=== PATIENT | female | born 1985 | race Hispanic/Latino ===

== ENCOUNTER 2019-11-09 01:50 | Inpatient (IN) | payer SELFPAY ==
[2019-11-09] VITALS (11 sets, daily range): BP systolic 94–109; BP diastolic 66–86; PULSE 77–131; RESP 16–34; TEMP 36.8–36.9; O2SAT 92–98
--- NOTE | ~2019-11-09 | CT_ITS ---
EXAMINATION: CTA chest PE protocol EXAM DATE: 11/09/2019 16:17 INDICATION: Elevated d-dimer. Shortness of breath. TECHNIQUE: Spiral CTA of the chest (pulmonary arteries) was performed with 100 cc Omnipaque 350 intr avenous contrast injection. Images were acquired during the pulmonary arterial phase. Coronal maxi mum intensity projection 3D-reconstructions were created by the technologist on dedicated workstation . Axial, coronal and sagittal reformatted images were reviewed. The dose-length product (DLP) for t his examination was 332.80 mGy-cm. The exposure was tailored according to patient size (auto mA exp osure control), and iterative reconstruction (ASIR) was used as additional dose reduction technique. There is no prior study for comparison. FINDINGS: There are no pulmonary emboli in the 1st through 3rd order (central and interlobar) pulmon kevin arteries. There is loss of attenuation in the segmental pulmonary arteries due to respiratory mot ion, but no intraluminal filling defects suspected. No thoracic aortic dissection. The lungs are c lear. There are no pleural or pericardial effusions. Tracheobronchial tree is patent. There is no mediastinal, hilar or axillary lymphadenopathy. There is no pneumothorax. Heart normal in size . No evidence of coronary arterial calcification. Upper abdomen is unremarkable. There is thorac ic spondylosis without osteoblastic or osteolytic lesions identified. IMPRESSION: 1. No central pulmonary emboli. Segmental vessels not confidently assessed. 2. Unremarkable CT pulmonary exam. Reviewed, dictated and finalized at location A.
--- NOTE | ~2019-11-09 | XR_ITS ---
EXAMINATION: XR chest 1V portable INDICATION: Shortness of breath TECHNIQUE: Portable AP chest at 0 to 46 hours COMPARISON: 04/12/2019 FINDINGS: There are minimal airspace opacities of the right lung base. No pleural effusion or pneumot horax is identified. The cardiomediastinal silhouette is normal. Surgical clips in the right upper qu adrant are likely from prior cholecystectomy. IMPRESSION: 1. Minimal right basilar airspace opacity, consistent with atelectasis versus pneumonia. Reviewed, dictated and finalized at location A. IMPRESSION: 1. Minimal right basilar airspace opacity, consistent with atelectasis versus p neumonia.
--- NOTE | 2019-11-09 01:53 | ED.SOB ---
HPI - SOB/Dyspnea General Chief Complaint: Shortness of Breath/Dyspnea Stated Complaint: sob x 2 wks Time Seen by Provider: 11/09/19 01:52 History of Present Illness HPI Narrative: Worsening SOB for the past 2 weeks. Associated with wheezing. Initially improved with albuterol, now this is no longer working. Similar episode in April, diagnosed with pneumonia at that time. No fever. No known sick contacts. Related Data Allergies Allergy/AdvReac Type Severity Reaction Status Date / Time No Known Allergies Allergy Verified 04/12/19 19:00 Review of Systems Review of Systems: All systems reviewed & are unremarkable except as noted in HPI and below Constitutional: Constitutional: Denies fever(s) ENT: Denies sore throat Cardiovascular: Cardiovascular: Denies chest pain Respiratory: Respiratory: Reports cough, Reports dyspnea and Reports wheezing Gastrointestinal: Gastrointestinal: Denies nausea and Denies vomiting Genitourinary: Genitourinary: Denies hematuria Neurologic: Denies dizziness PMFSH Past Medical History Medical History Pneumonia Surgical History Surgical History Previous section Social History Social History Smoking status: Never smoker Gender identity (if verbalized by the patient): Female Exam Const: General: no acute distress, alert and ill appearing Orientation/consciousness: patient oriented x3 Other: Mild distress HENMT: Head: normal to inspection Neck: Neck: normal visual inspection and no lymphadenopathy Chest: Chest palpation & inspection: no tenderness Resp: Effort & Inspection: labored and tachypneic Auscultation: wheezes Cardio: Jugular venous distension: no JVD Rate: tachycardic Rhythm: regular rhythm Heart sounds: no murmurs GI: Inspection: non-distended GI Palp: Yes Soft to palpation and No Tenderness to palpation present (GI) Skin: General skin exam: normal color Neuro: General: patient oriented x3 and moves all extremities Speech: normal speech Extrem: General: no edema Psych: Appearance: well kempt Affect: normal affect Course Vital Signs Vital signs: Vital Signs Temperature 36.9 C 11/09/19 02:02 Pulse Rate 131 H 11/09/19 02:02 Respiratory Rate 34 H 11/09/19 02:02 Blood Pressure 108/86 11/09/19 02:02 Pulse Oximetry 94 11/09/19 02:02 Temperature 36.9 C 11/09/19 02:02 Pulse Rate 86 11/09/19 03:20 Respiratory Rate 16 11/09/19 03:20 Blood Pressure 106/83 11/09/19 03:20 Pulse Oximetry 98 11/09/19 03:20 MDM - SOB/Dyspnea MDM Narrative Medical decision making narrative: Patchy infiltrate Differential Diagnosis Differential diagnosis: Likely community acquired pneumonia, asthma with exacerbation and other (COVID-19) Medical Records Attestation: I reviewed the patient's medical records. Lab Data Attestation: I reviewed the patient's lab results. Result diagrams: 11/09/19 02:07 Labs: Lab Results 11/09/19 11/09/19 11/09/19 Range/Units 02:07 02:07 02:07 WBC 22.5 H (4.5-10.0) K/mm3 RBC 5.23 (4.2-5.4) M/mm3 Hgb 14.4 (12.0-15.0) g/dL Hct 43.3 (37.0-47.0) % MCV 82.8 (80-100) fl MCH 27.5 (26-34) pg MCHC 33.3 (32-36) g/dl RDW 13.1 (11.5-14.5) % Plt Count 325 (150-375) k/mm3 MPV 10.3 (7.4-10.4) fl Immature Gran % (Auto) 0.6 H (0-0.5) % Neut % (Auto) 43.0 L (45.5-73.1) % Lymph % (Auto) 24.1 (18.3-44.2) % [place] % (Auto) 5.0 (2.6-8.5) % Eos % (Auto) 26.4 H (0-4.4) % Baso % (Auto) 0.9 (0.2-1.2) % Lymph # (Auto) 5.41 H (0.9-3.2) K/mm3 [place] # (Auto) 1.1 H (0.1-0.6) K/mm3 Eos # (Auto) 5.9 H (0-0.3) K/mm3 Baso # (Auto) 0.2 H (0.0-0.1) K/mm3 Abs Immat Gran (auto) 0.13 H (0.00-0.031) K/mm3 Absolute Neuts (auto) 9.7 H (1.
--- NOTE | 2019-11-09 01:58 | ECG_ITS ---
Measurements Intervals [place] Rate: 101 P: 33 [place]: 142 QRS: 77 QRSD: 84 T: 26 QT: 325 QTc: 423 Interpretive Statements SINUS TACHYCARDIA MINIMAL Q WAVES- INFERIOR LEADS NONSPECIFIC T-WAVE ABNORMALITY- INFERIOR LEADS BASELINE WANDER- V1 BORDERLINE ECG Electronically Signed On 11-13-2019 8:40:07 CDT by Bruno Whelan D.O.
[2019-11-09] MEDS: MAGNESIUM SULF 2 GM/WATER 50ML 2 GM/50 ML BAG IVPB (02:10)
[2019-11-09] MEDS: ALBUTEROL SULFATE NEB 2.5 MG/0.5 ML INH 5 MG INHALATION (02:19)
[2019-11-09] MEDS: IPRATROPIUM BR 0.02% INH SOLN 0.5 MG/2.5 ML VIAL INHALATION ×2 (02:19→20:12)
[2019-11-09 02:20] LABS: Basophils Absolute Auto 0.2 K/mm3 (0.0-0.1); Basophils Percent Auto 0.9 % (0.2-1.2); Eosinophils Absolute Auto 5.9 K/mm3 (0-0.3); Eosinophils Percent Auto 26.4 % (0-4.4); Hematocrit 43.3 % (37.0-47.0); Hemoglobin 14.4 g/dL (12.0-15.0); Immature Granulocyte Absolute 0.13 K/mm3 (0.00-0.031); Immature Granulocyte Percent A 0.6 % (0-0.5); Lymphocytes Absolute Auto 5.41 K/mm3 (0.9-3.2); Lymphocytes Percent Auto 24.1 % (18.3-44.2); Mean Corpuscular HGB Conc 33.3 g/dl (32-36); Mean Corpuscular Hemoglobin 27.5 pg (26-34); Mean Corpuscular Volume 82.8 fl (80-100); Mean Platelet Volume 10.3 fl (7.4-10.4); Monocytes Absolute Auto 1.1 K/mm3 (0.1-0.6); Neutrophils Absolute Auto 9.7 K/mm3 (1.3-6.7); Platelet Count Result 325 k/mm3 (150-375); Red Blood Count 5.23 M/mm3 (4.2-5.4); Red Cell Distribution Width 13.1 % (11.5-14.5); White Blood Count 22.5 K/mm3 (4.5-10.0)
[2019-11-09 02:33] LABS: Lactate Dehydrogenase 485 U/L (313-618)
[2019-11-09 02:34] LABS: D Dimer 0.77 ug/mL (<0.48); Lactic Acid Reflex 1.5 mmol/L (0.7-2.1)
[2019-11-09 02:37] LABS: CRP 1.2 mg/dL (<1.0)
--- NOTE | 2019-11-09 05:00 | ADMGEN ---
This patient, Gissel Regan, was admitted to [facility] Room 329-01. Patient/family oriented to hospital policies and general routines including ID bracelet, bed and alarms, visiting hours, pain management, procedures, bathroom and other care routines, personal items, smoking policy, room service/diet, and visiting hours. Valuables list has been completed. Information on how to activate the Rapid Response Team has been discussed. Patient/Family are encouraged to report perceived risks to care and to ask questions if they do not understand what they are told or what they should do.
[2019-11-09] MEDS: ALBUTEROL SULFATE (*SP) INHALER 1 PUFF (08:46)
[2019-11-09] MEDS: ALBUTEROL SULFATE (*SP) AEROSOL 1 PUFF 2 PUFF INHALATION ×3 (08:47→16:24)
--- NOTE | 2019-11-09 10:30 | PM.IMHP ---
H&P: HPI History of Present Illness Date/Time: 11/09/19 10:30 Chief complaint: Pneumonia Narrative: Gissel Regan is a 34 year old female with hx of PNA here for SOB and cough. Patient is Romansh speaking only. Majority history obtained through an certified court interpreter. Patient states about 2 weeks ago she developed cough with shortness of breath. Her symptoms have progressed to the point where the cough causes nausea and vomiting yesterday. She also was developing chest tightness. No fever or chills. No sick contacts. No COVID exposure. No recent travel. No local or overseas travel. No history of asthma. She is a lifelong nonsmoker. She grew up in [place] and states her vaccines are up-to-date. She believes that she has been vaccinated for pertussis. She denies any diarrhea or constipation. No abdominal pain. No dysuria or hematuria. Her menses are regular. Cough is productive clear sputum. No rash or open skin no lesions. No headaches. No mouth sores. No ear pain. No vision problems. Because of her worsening symptoms, she presented to the emergency room for evaluation. In the emergency room, she was hemodynamically stable but RR 34 and tachycardic at 131. CXR showing right basilar airspace disease. [place] [address] with a predominance of eosinophils. D-dimer was positive. CRP was 1.2. Lactic acid levels normal. She was started on IV antibiotics, dexamethasone and albuterol. COVID testing is pending. She feels better today. Review of Systems Review of Systems: All systems reviewed & are unremarkable except as noted in HPI and below PMFSH Past Medical History Medical History (Updated 11/10/19 @ 07:15 by Erik Carreon MD) Pneumonia LLL in March 2019 Surgical History Surgical History (Updated 11/09/19 @ 10:58 by Erik Carreon MD) Hx laparoscopic cholecystectomy June 2013 Previous section Family History Family History (Updated 11/09/19 @ 11:00 by Erik Carreon MD) Mother No problems noted. Father Hyperlipidemia Social History Social History (Updated 11/09/19 @ 11:01 by Erik Carreon MD) Social History: She lives at home with her , 2 children and [id number]. Lifelong nonsmoker. No alcohol or drug use. She is a full code. She nominates her to be the individual who would make medical decisions for her if she is not able. Smoking status: Never smoker Alcohol intake: never Substance use: never Gender identity (if verbalized by the patient): Female Spiritual care concerns: No Meds Home Medications and Allergies Home Medications Medication Instructions Recorded Confirmed Type No Home Medications 11/09/19 11/09/19 History Allergies Allergy/AdvReac Type Severity Reaction Status Date / Time No Known Allergies Allergy Verified 11/09/19 05:17 Vital Signs Vital Signs - 24 hr 11/09/19 02:02 11/09/19 02:10 11/09/19 02:15 Temperature 98.5 F Pulse Rate 131 H 101 H 99 Respiratory Rate 34 H 24 H 22 H Blood Pressure 108/86 96/74 L Pulse Oximetry 94 94 11/09/19 02:21 11/09/19 03:20 11/09/19 04:21 Temperature Pulse Rate 91 86 85 Respiratory Rate 21 H 16 20 Blood Pressure 106/83 108/75 Pulse Oximetry 98 92 11/09/19 08:00 Temperature 98.4 F Pulse Rate 90 Respiratory Rate 20 Blood Pressure 102/67 Pulse Oximetry 96 Exam Narrative: Exam Narrative: AF 102/67 95 20 96% 2L Gen - well-nourished, well-developed female in no acute respiratory distress who is nontoxic-appearing lying semi recumbent in bed HEENT - normocephalic. Atraumatic. Pupils equal round and reactive. Extraocular motions intact. Sclera clear and anicteric. Nares patent. Oropharynx was clear. No oral lesions. Moist mucous membranes. Tongue was midline. Palate xochitl symmetrically. No facial asymmetry. Neck - neck was supple. No dominant adenopathy, thyromegaly or masses. Chest - Right greater than left
[2019-11-09 14:05] LABS: SARS-CoV-2 RNA PCR Negative
[2019-11-09 14:20] LABS: Anion Gap 16.3 mmol/L (7-16); Blood Urea Nitrogen 9 mg/dL (7-17); Calcium 9.5 mg/dL (8.4-10.2); Carbon Dioxide 22 mmol/L (22-30); Chloride 103 mmol/L (98-107); Estimated CRCL calculation 95 ml/min; Estimated Glomerular Filt Rate > 60; Glucose 162 mg/dL (65-105); Potassium 4.3 mmol/L (3.4-5.0); Sodium 137 mmol/L (137-145)
[2019-11-09] MEDS: SODIUM CHLORIDE 0.9% IV 1,000 ML 100 ML IV CONT (14:46)
[2019-11-09 15:15] LABS: Beta HCG Quantitative < 2.39 mIU/ML
[2019-11-09] MEDS: methylPREDNISolone SOD SUCC 125 MG VIAL 60 MG IV PUSH (21:59)
[2019-11-10] VITALS (14 sets, daily range): BP systolic 100–104; BP diastolic 61–63; PULSE 69–97; RESP 18; TEMP 36.6; O2SAT 93–96
[2019-11-10] MEDS: IPRATROPIUM BR 0.02% INH SOLN 0.5 MG/2.5 ML VIAL INHALATION ×3 (02:01→14:07)
[2019-11-10] MEDS: SODIUM CHLORIDE 0.9% IV 1,000 ML 100 ML IV CONT ×2 (04:10→14:37)
[2019-11-10] MEDS: methylPREDNISolone SOD SUCC 125 MG VIAL 60 MG IV PUSH ×2 (05:49→14:31)
[2019-11-10 06:11] LABS: Basophils Absolute Auto 0.1 K/mm3 (0.0-0.1); Basophils Percent Auto 0.2 % (0.2-1.2); Eosinophils Percent Auto 0.1 % (0-4.4); Hematocrit 40.2 % (37.0-47.0); Hemoglobin 13.2 g/dL (12.0-15.0); Immature Granulocyte Absolute 0.43 K/mm3 (0.00-0.031); Immature Granulocyte Percent A 1.9 % (0-0.5); Lymphocytes Absolute Auto 2.47 K/mm3 (0.9-3.2); Lymphocytes Percent Auto 11.2 % (18.3-44.2); Mean Corpuscular HGB Conc 32.8 g/dl (32-36); Mean Corpuscular Hemoglobin 27.4 pg (26-34); Mean Corpuscular Volume 83.6 fl (80-100); Mean Platelet Volume 10.3 fl (7.4-10.4); Monocytes Absolute Auto 0.5 K/mm3 (0.1-0.6); Monocytes Percent Auto 2.4 % (2.6-8.5); Neutrophils Absolute Auto 18.6 K/mm3 (1.3-6.7); Neutrophils Percent Auto 84.2 % (45.5-73.1); Platelet Count Result 338 k/mm3 (150-375); Red Blood Count 4.81 M/mm3 (4.2-5.4); Red Cell Distribution Width 13.2 % (11.5-14.5); White Blood Count 22.1 K/mm3 (4.5-10.0)
[2019-11-10 06:20] LABS: Alanine Aminotransferase 19 U/L (4-35); Alkaline Phosphatase 73 U/L (38-126); Anion Gap 13.1 mmol/L (7-16); Aspartate Amino Transferase 23 U/L (14-36); Bilirubin,Total 0.2 mg/dL (0.2-1.3); Blood Urea Nitrogen 10 mg/dL (7-17); Calcium 8.8 mg/dL (8.4-10.2); Carbon Dioxide 23 mmol/L (22-30); Chloride 106 mmol/L (98-107); Estimated CRCL calculation 95 ml/min; Estimated Glomerular Filt Rate > 60; Glucose 142 mg/dL (65-105); Magnesium 2.3 mg/dL (1.6-2.3); Potassium 4.1 mmol/L (3.4-5.0); Sodium 138 mmol/L (137-145)
[2019-11-10 06:27] LABS: Immunoglobulin A 133 mg/dL (70-400); Immunoglobulin G 1209 mg/dL (700-1600); Immunoglobulin M 166 mg/dL (40-230)
[2019-11-10] MEDS: ALBUTEROL SULFATE NEB 2.5 MG/0.5 ML INH 5 MG INHALATION ×2 (10:11→14:06)
[2019-11-10] MEDS: ENOXAPARIN 40 MG/0.4 ML SYRINGE SUB-Q (14:31)
--- NOTE | 2019-11-10 16:52 | PM.DS ---
DS: Discharge Diagnosis Discharge Diagnosis (1) SIRS (systemic inflammatory response syndrome): Code(s): R65.10 - Systemic inflammatory response syndrome (SIRS) of non-infectious origin without acute organ dysfunction Status: Acute Assessment and Plan: Patient with elevated white count, tachycardia and tachypnea consistent with SIRS. On admission, CXR showing RLL airspace disease felt to be pneumonia but CTA is clear. CXR findings probably atelectasis. Blood cultures NGTD. COVID Negative. Symptoms improved. Requesting discharge. Will need further evaluation as outpatient. (2) Eosinophilia: Code(s): D72.1 - Eosinophilia Status: Acute Assessment and Plan: Patient with markedly elevated white count on admission 22,000 with a quarter found to be eosinophils. Patient with right lower lobe airspace disease but resolved by CT chest. She had similar symptoms in March with left lower lobe airspace disease treated with antibiotics and steroids but no significant eosinophilia noted at that time. No medications (even OTC) to suggest allergic reaction. No rash. Stool O&P pending. Will have her follow up with Pulmonology in clinic. (3) Leukocytosis: Code(s): D72.829 - Elevated white blood cell count, unspecified Status: Acute Assessment and Plan: Patient's white count is elevated 22,000 on admission. Related to above Marked eosinophilia noted as well. Patietn clinically improved but WBC unchanged probably related to the steroids. Repeat WBC after discharge. (4) Asthma: Code(s): J45.909 - Unspecified asthma, uncomplicated Status: Acute Assessment and Plan: Patient most likely has asthma given the eosinophilia, wheezing and cough. IgE level and Aspergillus titers ending. Treated with steroids and bronchodilators. Had O2 requirement but able to be weaned off O2. (5) Positive D-dimer: Code(s): R79.89 - Other specified abnormal findings of blood chemistry Status: Acute Assessment and Plan: Patient with mildly elevated D-dimer. CTA showing no PE. [place] elevated D-dimer related to above. DS: Summary Hospital Course Reason for hospitalization: 34yo female here for SOB. Please see H&P for details. Hospital Course: As above Time Spent with Patient Time attestation: Total time spent providing and/or coordinating discharge services:32 minutes Time spent: Greater than 30 minutes Exam Narrative: Exam Narrative: Feels well. Off O2. Stil with mild cough. No hemoptysis. No CP. Eating well. SOB much better AF 104/61 81 18 94% RA Gen - NARD Chest - CTA bilaterally, no wheezes CV - RRR S1/S2 Abd - soft, NT/ND, +BS Ext - no pedal edema Psych - normal mood and affect. Skin - warm and dry. DS: Data Data Completed and Pending Labs on day of discharge: Labs from last 24 hours 11/10/19 11/10/19 11/10/19 05:49 05:49 05:49 WBC RBC Hgb Hct MCV MCH MCHC RDW Plt Count MPV Immature Gran % (Auto) Neut % (Auto) Lymph % (Auto) [place] % (Auto) Eos % (Auto) Baso % (Auto) Lymph # (Auto) [place] # (Auto) Eos # (Auto) Baso # (Auto) Abs Immat Gran (auto) Absolute Neuts (auto) Absolute Nucleated RBC Nucleated RBC % Sodium Potassium Chloride Carbon Dioxide Anion Gap BUN Creatinine Estim Creat Clear Calc Estimated GFR Glucose Calcium Magnesium Total Bilirubin AST ALT Alkaline Phosphatase Total Protein Albumin A. flavus Allergen IgE Pending A.fumigatus Allerg IgE Pending A.fumigatus Allerg IgG Pending A.fumigatus IgE Conv Cl Pending A. niger Allergen IgE Pending A. niger Allergen % Pending A. niger [place] Class Pending IgG 1209 IgA 133 IgM 166 IgE Pending A. fumigatus IgG Ab Pending 11/10/19 11/10/19 05:49 05:49 WBC 22.1 H
[2019-11-14 03:04] LABS: Aspergillus Fumigatus K/UL <0.10 (<0.10); Conventional Class 0 (0)
[2019-11-14 05:17] LABS: Immunoglobulin E 91 kU/L (<=114)
--- NOTE | 2019-11-14 13:21 | PC.NURSE ---
IgE- 91. Dr. Velma mosher.
[2019-11-15 08:14] LABS: Aspergillus fumigatus (m3) IgG 8.7 mcg/mL (<2.0)
--- NOTE | 2019-11-21 15:09 | PC.NURSE ---
Blood cx are negative. ASpergillus Ab IgG- 8.[address] Carreon aware. Result faxed to PCP.
--- NOTE | 2019-11-23 08:37 | PC.NURSE ---
Dr. Carreon aware of below lab findings. Findings faxed to Dr. Tompkins. O&P is negative Aspergillus IgG- 8.7 WNL IgE WNL [place] IgE negative.
== END 2019-11-10 19:00 | disposition home or self-care (01) | DRG 141 ==
LOC: ANHED 04:22 → ANH3MEDSUR 06:41
PROVIDERS: Admitting Provider Family Medicine; Emergency Provider Emergency Medicine; Visit Provider Internal Medicine
DX: J45.909 Unspecified asthma, uncomplicated; D72.1 Eosinophilia; R65.10 Systemic inflammatory response syndrome (SIRS) of non-infectious origin without acute organ dysfunction; Z20.828 Contact with and (suspected) exposure to other viral communicable diseases; R79.89 Other specified abnormal findings of blood chemistry
CPT/HCPCS: 36415; 71045; 71275; 80048; 80053; 82784; 82785; 83605; 83615; 83735; 84702; 85025; 85380; 86001; 86003; 86140; 86606; 87040; 87177; 87209; 87635; 93005; 94640; 96365; 96375; 99285; A9270; C9803; J0456; J0696; J1100; J1650; J2930; J3475; J7030; Q9967; U0003

== ENCOUNTER 2021-11-30 10:19 | Emergency (ER) | payer OTHER, SELFPAY ==
[2021-11-30] VITALS (22 sets, daily range): BP systolic 95–114; BP diastolic 54–80; PULSE 75–122; RESP 16–21; TEMP 36.3; O2SAT 94–100
--- NOTE | ~2021-11-30 | XR_ITS ---
EXAMINATION: XR chest 1V portable INDICATION: Cough and shortness of breath TECHNIQUE: Portable AP chest at 1307 hours COMPARISON: 11/09/2019 FINDINGS: The lungs are free of acute opacities. No pleural effusion or pneumothorax. The cardiomedia stinal silhouette is normal. The visualized bones and soft tissues are unremarkable. IMPRESSION: 1. No acute cardiopulmonary abnormality. Reviewed, dictated and finalized at location A.
[2021-11-30] MEDS: ALBUTEROL SULFATE NEB 2.5 MG/3 ML INH 15 MG INHALATION (12:07)
[2021-11-30] MEDS: IPRATROPIUM BR 0.02% INH SOLN 0.5 MG/2.5 ML VIAL 1.5 MG INHALATION (12:07)
[2021-11-30 12:42] LABS: Basophils Absolute Auto 0.1 K/mm3 (0.0-0.1); Basophils Percent Auto 0.6 % (0.2-1.2); Eosinophils Absolute Auto 0.5 K/mm3 (0-0.3); Eosinophils Percent Auto 4.3 % (0-4.4); Hematocrit 34.9 % (37.0-47.0); Hemoglobin 11.4 g/dL (12.0-15.0); Immature Granulocyte Absolute 0.06 K/mm3 (0.00-0.031); Immature Granulocyte Percent A 0.6 % (0-0.5); Lymphocytes Absolute Auto 1.93 K/mm3 (0.9-3.2); Lymphocytes Percent Auto 18.3 % (18.3-44.2); Mean Corpuscular HGB Conc 32.7 g/dl (32-36); Mean Corpuscular Hemoglobin 27.6 pg (26-34); Mean Corpuscular Volume 84.5 fl (80-100); Mean Platelet Volume 10.9 fl (7.4-10.4); Monocytes Absolute Auto 0.8 K/mm3 (0.1-0.6); Monocytes Percent Auto 7.2 % (2.6-8.5); Neutrophils Absolute Auto 7.3 K/mm3 (1.3-6.7); Platelet Count Result 242 k/mm3 (150-375); Red Blood Count 4.13 M/mm3 (4.2-5.4); White Blood Count 10.5 K/mm3 (4.5-10.0)
--- NOTE | 2021-11-30 12:42 | ED.SOB ---
HPI - SOB/Dyspnea General Chief Complaint: Shortness of Breath/Dyspnea Stated Complaint: SOB Time Seen by Provider: 11/30/21 11:49 History of Present Illness HPI Narrative: Patient is a 36-year-old female who presents ER with shortness of breath and wheezing. Patient has history of asthma. Reports her children were recently ill but were COVID-negative on testing. She then caught what they had. She has been wheezing over the last couple days. She has been using her inhaler but is nervous to use it anymore and she has to because she is 22 weeks . She is still feeling movement. No leakage of fluid or vaginal bleeding/discharge. She has some mild epigastric discomfort from frequent coughing. No nausea or vomiting. Pts OB is at [facility] but they do not remember the name. Related Data Allergies Allergy/AdvReac Type Severity Reaction Status Date / Time No Known Allergies Allergy Verified 11/09/19 05:17 Review of Systems Review of Systems: All systems reviewed & are unremarkable except as noted in HPI and below Constitutional: Constitutional: Denies chills, Reports fatigue and Denies fever(s) Cardiovascular: Cardiovascular: Reports chest pain (Central pressure), Denies rapid heart rate and Denies radiating jaw, neck or arm pain Respiratory: Respiratory: Reports cough, Reports dyspnea and Reports wheezing Gastrointestinal: Gastrointestinal: Denies abdominal pain, Denies nausea and Denies vomiting Genitourinary: Genitourinary: Denies abnormal vaginal bleeding, Denies hematuria, Denies nocturia, Denies dysuria, Denies pelvic pain and Denies vaginal discharge Integumentary/Breasts: Skin/Breast: Denies erythema and Denies rash PMF Past Medical History Medical History (Updated 11/30/21 @ 14:04 by Indigo Dolan MD) Pneumonia LLL in March 2019 Surgical History Surgical History (Updated 11/09/19 @ 10:58 by Erik Carreon MD) Hx laparoscopic cholecystectomy June 2013 Previous section Family History Family History (Updated 11/09/19 @ 11:00 by Erik Carreon MD) Mother No problems noted. Father Hyperlipidemia Social History Social History (Updated 11/09/19 @ 11:01 by Erik Carreon MD) Social History: She lives at home with her , 2 children and [id number]. Lifelong nonsmoker. No alcohol or drug use. She is a full code. She nominates her to be the individual who would make medical decisions for her if she is not able. Smoking status: Never smoker Alcohol intake: never Substance use: never Gender identity (if verbalized by the patient): Female Spiritual care concerns: No Exam Narrative: GENERAL: Well-appearing, well-nourished, and in no acute distress. HEAD: Normocephalic, atraumatic. EYES: PERRL and EOMI. CHEST: Diffuse wheezing. No respiratory distress. HEART: Regular rate and rhythm. Normal peripheral pulses. ABDOMEN: Soft, nontender, nondistended. Uterus palpated umbilicus. EXTREMITIES: Normal range of motion. No edema. SKIN: Warm, dry, no rash. NEURO: Alert and oriented x3. PSYCH: Normal mood and affect. Course Vital Signs Vital signs: Vital Signs Temperature 36.3 C L 11/30/21 10:21 Pulse Rate 81 11/30/21 10:21 Respiratory Rate 18 11/30/21 10:21 Blood Pressure 112/69 11/30/21 10:21 Pulse Oximetry 98 11/30/21 10:21 Oxygen Delivery Room Air 11/30/21 10:21 Temperature 36.3 C L 11/30/21 10:21 Pulse Rate 112 H 11/30/21 13:31 Respiratory Rate 19 11/30/21 13:31 Blood Pressure 114/61 11/30/21 13:31 Pulse Oximetry 96 11/30/21 13:31 Oxygen Delivery Room Air 11/30/21 12:04 MDM - SOB/Dyspnea Lab Data Result diagrams: 11/30/21 12:14 11/30/21 12:14 Labs: Lab Results 11/30/21 11/30/21 11/30/21 Range/Units 12:08 12:14 12:14 WBC 10.5 H (4.5-10.0) K/mm3 RBC 4.13 L (4.2-5.4) M/mm3 Hgb 11.4 L (12.0-15.0) g/dL Hct
[2021-11-30 12:54] LABS: Anion Gap 10 mmol/L (8-16); Blood Urea Nitrogen 5 mg/dL (7-17); Calcium 8.7 mg/dL (8.4-10.2); Carbon Dioxide 21 mmol/L (22-30); Chloride 105 mmol/L (98-107); Estimated Glomerular Filt Rate > 60; Glucose 100 mg/dL (65-110); Potassium 3.4 mmol/L (3.4-5.0); Sodium 136 mmol/L (137-145)
[2021-11-30 13:18] LABS: SARS-CoV-2 RNA PCR Negative
== END 2021-11-30 14:26 | disposition home or self-care (01) ==
PROVIDERS: Emergency Medicine; Emergency Provider Emergency Medicine
DX: O99.512 Diseases of the respiratory system complicating pregnancy, second trimester (principal); J45.901 Unspecified asthma with (acute) exacerbation; Z20.822 Contact with and (suspected) exposure to COVID-19; Z87.01 Personal history of pneumonia (recurrent); Z3A.22 22 weeks gestation of pregnancy
CPT/HCPCS: 36415; 71045; 80048; 85025; 94640; 99284; C9803; U0003; U0005

== ENCOUNTER 2022-10-14 16:28 | Emergency (ER) | payer OTHER, SELFPAY ==
[2022-10-14] VITALS (12 sets, daily range): BP systolic 102–123; BP diastolic 62–87; PULSE 62–105; RESP 14–20; TEMP 36.2–36.7; O2SAT 97–99
--- NOTE | ~2022-10-14 | CT_ITS ---
EXAMINATION: CT brain wo con DATE: 10/14/2022 16:51 INDICATION: Left-sided numbness. TECHNIQUE: Computed tomography (CT) of the head was performed without intravenous contrast. The mA wa s adjusted according to patient size. Iterative reconstruction technique was employed. The dose-lengt h product was 605.33 mGy-cm. COMPARISON: None FINDINGS: There is no intracranial hemorrhage, acute infarction, or abnormal intracranial mass lesion . The ventricles are normal in size. The orbits are normal. The paranasal sinuses are clear. The mast oid air cells are normal. IMPRESSION: 1. Normal brain. Reviewed, dictated and finalized at location E. IMPRESSION: 1. Normal brain.
--- NOTE | ~2022-10-14 | CT_ITS ---
EXAMINATION: CTA brain carotid DATE: 10/14/2022 22:10 INDICATION: Left facial weakness. TECHNIQUE: Computed tomographic angiography (CTA) of the head was performed with 100 mL Omnipaque-350 intravenous contrast. CTA of the neck was performed with intravenous contrast. Automated exposure co ntrol and iterative reconstruction technique were employed. The dose-length product was 1068.46 mGy-c m. Maximum intensity projection and volume rendered 3D-reconstructions were created by the [facility] on a separate workstation. COMPARISON: Head CT 10/14/2022 FINDINGS: HEAD CTA: There is no intracranial hemorrhage, acute infarction, or abnormal intracranial mass lesion . The ventricles are normal in size. The orbits are normal. The paranasal sinuses are clear. The mast oid air cells are normal. The vertebral arteries are codominant. There is no significant stenosis of basilar artery or the posterior cerebral arteries. The posterior communicating arteries are normal. T here is an infundibulum of right posterior communicating artery. There is no significant stenosis of the intracranial internal carotid arteries or anterior or middle cerebral arteries. Anterior communic ating artery is normal. There is no aneurysm. NECK CTA: There are no pathologically enlarged lymph nodes. There are nodules in the thyroid measurin g up to 6 mm, likely not clinically significant. There is no significant stenosis of the vertebral ar teries. There is no visible plaque in the proximal internal carotid arteries. There is 0% stenosis of the proximal right internal carotid artery relative to normal distal artery lumen diameter (NASCET c riteria). There is 0% stenosis of the proximal left internal carotid artery relative to normal distal artery lumen diameter. The bones are unremarkable. IMPRESSION: 1. Normal brain. No aneurysm or significant intracranial arterial stenosis. 2. 0% stenosis of the proximal internal carotid arteries relative to normal distal artery lumen diame ters (NASCET criteria). Reviewed, dictated and finalized at location E. IMPRESSION: 1. Normal brain. No aneurysm or significant intracranial arterial stenosis. 2. 0% stenosis of the proximal internal carotid arteries relative to normal dis unique artery lumen diameters (NASCET criteria).
--- NOTE | ~2022-10-14 | XR_ITS ---
EXAMINATION: XR chest 1V DATE: 10/14/2022 16:56 INDICATION: Facial numbness. TECHNIQUE: A single frontal view of the chest was obtained. COMPARISON: Chest single view 11/30/2021, chest CT 11/09/2019 FINDINGS: The chest demonstrates clear lungs without pneumonia, pleural effusion, or pneumothorax. Th e heart size is normal. Surgical clips in the right upper quadrant are likely from cholecystectomy. IMPRESSION: 1. No acute cardiopulmonary disease. Reviewed, dictated and finalized at location E.
--- NOTE | 2022-10-14 16:39 | ECG_ITS ---
Measurements Intervals [place] Rate: 66 P: 17 [place]: 161 QRS: 50 QRSD: 90 T: 30 QT: 380 QTc: 399 Interpretive Statements SINUS RHYTHM WITH SINUS ARRHYTHMIA MINIMAL Q WAVES- INFERIOR LEADS BORDERLINE ECG COMPARED TO ECG 11/09/2019 01:58:25 SINUS RHYTHM NOW PRESENT SINUS ARRHYTHMIA NOW PRESENT Electronically Signed On 10-14-2022 21:14:16 CDT by Bruno Whelan D.O.
[2022-10-14 17:20] LABS: Basophils Absolute Auto 0.1 K/mm3 (0.0-0.1); Basophils Percent Auto 0.8 % (0.2-1.2); Eosinophils Absolute Auto 0.5 K/mm3 (0-0.3); Eosinophils Percent Auto 4.6 % (0-4.4); Hematocrit 38.7 % (37.0-47.0); Hemoglobin 12.9 g/dL (12.0-15.0); Immature Granulocyte Absolute 0.05 K/mm3 (0.00-0.031); Immature Granulocyte Percent A 0.5 % (0-0.5); Lymphocytes Absolute Auto 3.36 K/mm3 (0.9-3.2); Lymphocytes Percent Auto 31.2 % (18.3-44.2); Mean Corpuscular HGB Conc 33.3 g/dl (32-36); Mean Corpuscular Hemoglobin 27.9 pg (26-34); Mean Corpuscular Volume 83.6 fl (80-100); Mean Platelet Volume 10.1 fl (7.4-10.4); Monocytes Absolute Auto 0.8 K/mm3 (0.1-0.6); Monocytes Percent Auto 7.2 % (2.6-8.5); Neutrophils Percent Auto 55.7 % (45.5-73.1); Platelet Count Result 305 k/mm3 (150-375); Red Blood Count 4.63 M/mm3 (4.2-5.4); Red Cell Distribution Width 12.9 % (11.5-14.5); White Blood Count 10.8 K/mm3 (4.5-10.0)
[2022-10-14 17:33] LABS: Alanine Aminotransferase 30 U/L (6-35); Albumin Level 4.1 g/dL (3.5-5.1); Alkaline Phosphatase 78 U/L (38-126); Anion Gap 3 mmol/L (8-16); Aspartate Amino Transferase 27 U/L (14-36); Bilirubin,Total 0.2 mg/dL (0.2-1.3); Blood Urea Nitrogen 13 mg/dL (7-17); Calcium 8.9 mg/dL (8.4-10.2); Carbon Dioxide 25 mmol/L (22-30); Chloride 106 mmol/L (98-107); Estimated Glomerular Filt Rate > 60; Glucose 114 mg/dL (65-110); Potassium 3.7 mmol/L (3.4-5.0); Sodium 134 mmol/L (137-145)
[2022-10-14 17:34] LABS: INR 0.9; Prothrombin Time 12.5 Seconds (11.1-14.7)
[2022-10-14 17:35] LABS: Partial Thromboplastin Time 23.7 SECONDS (22.3-36.8)
[2022-10-14 17:43] LABS: Troponin I < 0.012 ng/mL (0.000-0.034)
--- NOTE | 2022-10-14 21:05 | ED.GENADULT ---
HPI - General Adult General Chief complaint: Neuro Symptoms/Deficit Stated complaint: left sided facial droop Time Seen by Provider: 10/14/22 19:07 History of Present Illness HPI narrative: Syriac-speaking only, thermal cutter hand service was used for all communication. This is a 37-year-old female presenting ED with a chief complaint of left-sided facial droop and left arm and left face numbness intermittently x2 weeks. the patient denies weakness to any extremity. She denies altered mental status or any other neurologic deficits. She did deliver a child 6 and half months ago which is doing well. Related Data Allergies Allergy/AdvReac Type Severity Reaction Status Date / Time No Known Allergies Allergy Verified 10/14/22 16:29 [facility] Past Medical History Medical History Pneumonia LLL in March 2019 Surgical History Surgical History Hx laparoscopic cholecystectomy June 2013 Previous section Family History Family History Mother No problems noted. Father Hyperlipidemia Social History Social History Social History: She lives at home with her , 2 children and [id number]. Lifelong nonsmoker. No alcohol or drug use. She is a full code. She nominates her to be the individual who would make medical decisions for her if she is not able. Smoking status: Never smoker Alcohol intake: never Substance use: never Gender identity (if verbalized by the patient): Female Spiritual care concerns: No Exam Narrative: APPEARANCE: No apparent distress. Head: atraumatic. EYES: EOMI, NOSE: Atraumatic NECK: Trachea midline RESPIRATORY: No increased rate of breathing CARDIOVASCULAR: RRR, ABDOMINAL: Non-distended MUSCULOSKELETAl: No obvious deformities NEURO: Alert. Normal neurologic exam except for smile asymmetry in the left SKIN:: Warm, dry. Normal color PSYCHIATRIC: Normal affect NIH Stroke Scale/Score (NIHSS) from [email or web address] on 10/14/2022 All calculations should be rechecked by clinician prior to use RESULT SUMMARY: 1 points NIH Stroke Scale INPUTS: 4: Facial palsy ?> 1 = Minor paralysis (flat nasolabial fold, smile asymmetry) Course Vital Signs Vital signs: Vital Signs Temperature 97.2 F L 10/14/22 16:40 Pulse Rate 105 H 10/14/22 16:40 Respiratory Rate 18 10/14/22 16:40 Blood Pressure 123/71 10/14/22 16:40 Pulse Oximetry 98 10/14/22 16:40 Oxygen Delivery Room Air 10/14/22 16:40 Temperature 98.0 F 10/14/22 18:49 Pulse Rate 71 10/14/22 18:49 Respiratory Rate 15 10/14/22 18:49 Blood Pressure 107/69 10/14/22 18:49 Pulse Oximetry 97 10/14/22 18:49 Oxygen Delivery Room Air 10/14/22 16:40 Medical Decision Making MDM Narrative Medical decision making narrative: -Presentation: 37-year-old female presenting with left-sided facial droop, left facial and left arm paresthesias. NIH of 1. Patient's symptoms have been going on for [address] head, CTA and lab work been ordered. Patient has a at home the family does not want to be admitted as the mother has to take care of the child. 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 Metabolic panel unremarkable. Chest x-ray unremarkable. CT head showed normal brain. Independent EKG interpretation: Rhythm [sinus], Rate [66], [place] -[normal], [place] -[normal], QRS [narrow], QTC [normal], T waves
[2022-10-14] MEDS: ASPIRIN 81 MG CHEWABLE TABLET 324 MG PO (21:36)
== END 2022-10-15 00:04 | disposition home or self-care (01) ==
PROVIDERS: Emergency Medicine; Emergency Provider Emergency Medicine
DX: I63.9 Cerebral infarction, unspecified (principal); R29.810 Facial weakness; R29.701 NIHSS score 1; Z87.01 Personal history of pneumonia (recurrent); Z90.49 Acquired absence of other specified parts of digestive tract
CPT/HCPCS: 36415; 70450; 70496; 70498; 71045; 80053; 84484; 85025; 85610; 85730; 93005; 99284; A9270; Q9967

== ENCOUNTER 2022-10-15 23:25 | Observation (INO) | payer OTHER, SELFPAY ==
--- NOTE | ~2022-10-15 | MR_ITS ---
MR Venogram of the Brain Clinical Indication: Headache Technique MR venogram was done using coronal 2D time of flight technique. Findings: The superior sagittal sinus appears normal. The left and right transverse sinuses are paten t. The sigmoid sinuses appear patent bilaterally. The left transverse sinus is relatively hypoplastic . The internal cerebral veins, vein of Hang and straight sinus are patent. Impression: No evidence of venous sinus thrombosis. Relatively hypoplastic left transverse sinus. Reviewed, dictated and finalized at location . Impression: No evidence of venous sinus thrombosis. Relatively hypoplastic left transverse sinus.
--- NOTE | ~2022-10-15 | CT_ITS ---
Non-contrast Head CT History: Left-sided numbness COMPARISON: 10/14/2022 Technique: Axial non-contrast imaging of the brain was performed. Dose reduction technique was used on this scan by utilizing automated exposure control and iterative reconstruction technique. The dose -length product (DLP) was 605.33 mGy-cm. Findings: There is no evidence of intracranial hemorrhage, mass lesion, or acute infarct. Brain par enchyma appears normal. The ventricles and subarachnoid spaces are normal in size. The calvarium ap pears normal. The visualized paranasal sinuses and mastoid air cells are clear. Impression: No significant abnormality seen. Reviewed, dictated and finalized at location . Impression: No significant abnormality seen.
--- NOTE | ~2022-10-15 | XR_ITS ---
Portable chest x-ray Comparison: 10/14/2022 Clinical History: Numbness Findings: Lungs are clear, without focal consolidation or pleural effusion. Cardiomediastinal silho uette is stable. Bones and soft tissues are unremarkable. Impression: Normal chest. Reviewed, dictated and finalized at [facility]. Impression: Normal chest.
--- NOTE | ~2022-10-15 | MR_ITS ---
MRI of the brain Clinical History: Left-sided numbness Technique: Axial and sagittal T1-weighted images were acquired. These were followed by axial T2-weigh efrain, diffusion weighted, gradient, and FLAIR images. Following intravenous administration of 11 cc Mu ltiHance gadolinium, T1-weighted fat-sat imaging was performed in the axial and coronal planes. Findings: There is no acute infarct, intracranial hemorrhage, or mass lesion. There are tiny foci of hyperintense signal in the periventricular white matter in the frontal regions bilaterally, consisten t with minimal chronic microvascular ischemic change. Ventricles and subarachnoid spaces are unremarkable. Orbits are unremarkable. Paranasal sinuses and m astoid air cells are clear. Major intracranial flow voids are intact. Sagittal midline structures are intact. No abnormal postcontrast enhancement identified. IMPRESSION: Probable minimal chronic microvascular ischemic changes, otherwise unremarkable exam. Reviewed, dictated and finalized at location .
[2022-10-15 23:28] VITALS: BP 129/83; PULSE 92; RESP 16; TEMP 36.5; O2SAT 100
--- NOTE | 2022-10-15 23:36 | ECG_ITS ---
Measurements Intervals [place] Rate: 71 P: 10 CT: 169 QRS: 55 QRSD: 88 T: 31 QT: 376 QTc: 410 Interpretive Statements SINUS RHYTHM MINIMAL AQ WAVES- INFERIOR LEADS BORDERLINE ECG COMPARED TO ECG 10/14/2022 16:45:11 NO SIGNIFICANT CHANGES Electronically Signed On 10-16-2022 6:46:46 CDT by Bruno Whelan D.O.
[2022-10-15 23:47] LABS: Glucose Point of Care 140 mg/dl (65-105)
[2022-10-15 23:49] LABS: Basophils Absolute Auto 0.1 K/mm3 (0.0-0.1); Basophils Percent Auto 0.8 % (0.2-1.2); Eosinophils Absolute Auto 0.4 K/mm3 (0-0.3); Eosinophils Percent Auto 3.8 % (0-4.4); Hematocrit 39.1 % (37.0-47.0); Immature Granulocyte Absolute 0.05 K/mm3 (0.00-0.031); Immature Granulocyte Percent A 0.5 % (0-0.5); Lymphocytes Absolute Auto 4.57 K/mm3 (0.9-3.2); Mean Corpuscular HGB Conc 33.2 g/dl (32-36); Mean Corpuscular Hemoglobin 27.5 pg (26-34); Mean Corpuscular Volume 82.7 fl (80-100); Mean Platelet Volume 10.3 fl (7.4-10.4); Neutrophils Absolute Auto 4.6 K/mm3 (1.3-6.7); Neutrophils Percent Auto 42.9 % (45.5-73.1); Platelet Count Result 338 k/mm3 (150-375); Red Blood Count 4.73 M/mm3 (4.2-5.4); White Blood Count 10.6 K/mm3 (4.5-10.0)
[2022-10-15 23:51] VITALS: BP 114/82; PULSE 71; PULSE 74; PULSE 76; RESP 16; RESP 18; O2SAT 100; O2SAT 97
[2022-10-15 23:52] VITALS: BP 114/82; PULSE 77; RESP 16; O2SAT 91
[2022-10-16] VITALS (12 sets, daily range): BP systolic 95–114; BP diastolic 52–79; PULSE 63–85; RESP 14–20; TEMP 36.1–36.4; O2SAT 96–98; BMI 27.9
--- NOTE | 2022-10-16 | ECHO_ITS ---
Patient Info Name: Gissel Regan Age: 37 years : 1985 Gender: Female Ht: 56 in Wt: 124 lbs BSA: 1.51 m2 HR: 60 bpm BP: 98 / 58 mmHg Technical Quality: Good Exam Date: 10/16/2022 2:59 PM Exam Location: [facility] Patient Status: Outpatient Admit Date: 10/16/2022 Staff Ordering Physician: Meme Young MD Surface Supervisor: Alissa Mcnally RDCS Attending Provider: Meme Young MD Referring Physician: Hector KOO; Exam Type: CA echo doppler w bubble study Study Info Indications - STROKE Complete two-dimensional, color flow and Doppler transthoracic echocardiogram is performed with agitated saline. Summary 1. Left ventricular chamber dimension is normal. 2. Left ventricular systolic function is normal, estimated at 60-65%. 3. The left ventricular diastolic function is normal. 4. E/e' 7 is not elevated. 5. Global longitudinal strain is normal at -20.4%. 6. There is trace mitral valve regurgitation. 7. No pulmonary hypertension, estimated pulmonary arterial systolic pressure is 33 mmHg. Left Ventricle E/e' 7 is not elevated. Global longitudinal strain is normal at -20.4%. Left ventricular chamber dimension is normal. Left ventricular systolic function is normal, estimated at 60-65%. The left ventricular diastolic function is normal. Right Ventricle Right ventricular systolic function is normal and with normal TAPSE 2.9 cm. Right ventricular chamber dimension is normal. Left Atria Left atrial chamber dimension is normal. Right Atria Right atrial chamber dimension is normal. Aortic Valve The aortic valve is trileaflet. There is no aortic valve stenosis. There is no aortic valve regurgitation. Pulmonic Valve There is no pulmonic regurgitation. Mitral Valve There is no mitral valve stenosis. There is trace mitral valve regurgitation. Tricuspid Valve There is no tricuspid valve regurgitation. No pulmonary hypertension, estimated pulmonary arterial systolic pressure is 33 mmHg. Pericardium/Pleural There is no pericardial effusion. Inferior Vena Cava Normal inferior vena cava with >50% collapse upon inspiration consistent with normal right atrial pressure, 5 mmHg. Aorta The aortic root size at the sinus of Valsalva is normal. Left Ventricular Outflow Tract Name Value Normal LVOT 2D LVOT Diameter 1.9 cm LVOT Doppler LVOT Peak Gradient 7 mmHg LVOT Mean Gradient 4 mmHg LVOT VTI 27 cm LVOT VTI/AV VTI Ratio 0.9 LVOT Stroke Volume 76 ml LVOT CO 5.0 l/min LVOT CI 3.3 l/min/m2 Pulmonic Valve Name Value Normal RVOT Doppler RVOT Peak Gradient 2 mmHg PV Doppler PV Peak Gradient 3 mm
[2022-10-16 00:02] LABS: INR 0.9; Partial Thromboplastin Time 24.4 SECONDS (22.3-36.8); Prothrombin Time 12.5 Seconds (11.1-14.7)
[2022-10-16 00:04] LABS: Alanine Aminotransferase 31 U/L (6-35); Albumin Level 4.2 g/dL (3.5-5.1); Alkaline Phosphatase 84 U/L (38-126); Anion Gap 4 mmol/L (8-16); Aspartate Amino Transferase 29 U/L (14-36); Bilirubin,Total 0.2 mg/dL (0.2-1.3); Blood Urea Nitrogen 13 mg/dL (7-17); Calcium 9.1 mg/dL (8.4-10.2); Carbon Dioxide 24 mmol/L (22-30); Chloride 106 mmol/L (98-107); Estimated Glomerular Filt Rate > 60; Glucose 133 mg/dL (65-110); Potassium 3.6 mmol/L (3.4-5.0); Sodium 134 mmol/L (137-145)
[2022-10-16 00:15] LABS: Troponin I < 0.012 ng/mL (0.000-0.034)
--- NOTE | 2022-10-16 01:20 | ED.NEUROSD ---
HPI - Neuro Symptoms/Deficit General Chief Complaint: Suspected CVA Stated Complaint: headache and feeling warm, pressure in left arm Time Seen by Provider: 10/15/22 23:39 History of Present Illness HPI Narrative: 37-year-old female presents here with 1 day of left sided numbness/tingling and facial droop, she had been seen here yesterday for similar symptoms, offered admission with MRI, however she elected to go home due to having a daughter at home. She is back because she feels like the sensation is worse, and that it now feels like there is also a pressure in her head and chest. She also feels that the numbness and tingling is worse and now is in her left arm also Related Data Allergies Allergy/AdvReac Type Severity Reaction Status Date / Time No Known Allergies Allergy Verified 10/14/22 16:29 Review of Systems Review of Systems: CONST: No fever. HEENT: Left face numbness/droop C/V: Chest pain RESP: No cough GI: No abdominal pain : No dysuria. M/S: Left arm heaviness SKIN: No rash. NEURO: Numbness/heaviness to entire left side from face to arm PSYCH: Anxious PMFSH Past Medical History Medical History Pneumonia LLL in March 2019 Surgical History Surgical History Hx laparoscopic cholecystectomy June 2013 Previous section Family History Family History Mother No problems noted. Father Hyperlipidemia Social History Social History Social History: She lives at home with her , 2 children and [id number]. Lifelong nonsmoker. No alcohol or drug use. She is a full code. She nominates her to be the individual who would make medical decisions for her if she is not able. Smoking status: Never smoker Alcohol intake: never Substance use: never Gender identity (if verbalized by the patient): Female Spiritual care concerns: No Exam Narrative: EXAMINATION OF ORGAN SYSTEMS/BODY AREAS: Constitutional: Vital signs per nursing GENERAL: Appears anxious HEAD: Normal with no signs of head trauma. EYES: EOMI, conjunctiva normal ENT: Left-sided facial droop, forehead sparing LUNGS: Nonlabored breathing. HEART: [Regular rate and rhythm] ABD: [Soft], [nontender to palpation] EXT: Normal range of motion, normal strength all extremities SKIN: [No rashes or lesions.] NEURO: [Alert and oriented x 3. Subjective decreased sensation to the left face and arm and left facial droop.] PSYCH: Anxious affect Course Vital Signs Vital signs: Vital Signs Temperature 97.7 F 10/15/22 23:28 Pulse Rate 92 10/15/22 23:28 Respiratory Rate 16 10/15/22 23:28 Blood Pressure 129/83 10/15/22 23:28 Pulse Oximetry 100 10/15/22 23:28 Oxygen Delivery Room Air 10/15/22 23:28 Temperature 97.7 F 10/15/22 23:28 Pulse Rate 67 10/16/22 00:46 Respiratory Rate 20 10/16/22 00:46 Blood Pressure 104/70 10/16/22 00:46 Pulse Oximetry 97 10/16/22 00:46 Oxygen Delivery Room Air 10/15/22 23:28 MDM - Neuro Symptoms/Deficit MDM Narrative Medical decision making narrative: 37-year-old female presenting with concerning symptoms for CVA, symptoms have been ongoing for about a day, or possibly for a week, however she is back because they have been worsening. On exam she does have diminished sensation to left face and arm and left facial droop, I am concerned for an intracranial cause of her symptoms, she is 6 months and I did consider possible cavernous sinus thrombosis, case discussed with neurology who recommended admission and they will evaluate her in the morning to determine if further imaging is needed including MRI or MRV. This is discussed with the family who are agreeable to the plan, and the hospitalist is agreeable to
--- NOTE | 2022-10-16 09:15 | WPDNEURCNPN ---
Assessment and Plan Assessment and plan (1) Facial droop: Code(s): R29.810 - Facial weakness Status: Acute (2) Paresthesia: Code(s): R20.2 - Paresthesia of skin Status: Acute Plan Gissel Regan is a 37 year old female with no significant past medical history presenting for evaluation of left facial droop and left upper extremity numbness and tingling. Concern is highest for demyelinating condition such as MS. Also considering elevated CSVT given headache and tinnitus. She does not have any risk factors for acute stroke, but that is also a consideration. - Obtain MRI brain with and without contrast and MRV - If MRI brain is concerning for demyelinating process, will need MRI cervical/thoracic spine with and without contrast, and possibly LP (oligoclonal bands) depending on imaging findings, and high dose steroids x 5 days - If MRI brain is concerning for acute stroke, will need stroke work-up (CTA brain/carotid, surface echocardiogram with bubble study, LDL, A1c) and start antiplatelets +/- statin Consult date: 10/16/22 Reason for consult: Left facial droop and Left sided parasthesias HPI: Gissel Regan is a 37 year old female with no significant past medical history presenting for evaluation of left facial droop and left upper extremity numbness and tingling. Patient reports she started having these symptoms about 3 days ago, and was initially seen in the ED a day prior to admission. At that time, she was noted to have mild nasolabial flattening on the left side. Decision was made to admit patient for MRI brain but she declined due to having to care for her daughter. Patient presented again the following day due to worsening symptoms. She also reported feeling pressure in her head and ringing in her ears. No double vision or loss of vision. In the ED she was noted to have diminished sensation in the left face/arm and left facial droop. CT head and CTA brain/carotid has been obtained and is unrevealing. Patient gave 6 months ago, but otherwise is healthy. There is no family history of early stroke or clotting disorders. Patient has had a miscarriage in the past, but there is no history of recurrent miscarriages in the family. Review of Systems Constitutional: Constitutional: Denies chills, Denies fever(s) and Denies weight loss Eyes: Eyes: Denies diplopia and Denies loss of vision ENT: Denies dizziness, Denies hearing loss and Denies tinnitus Cardiovascular: Cardiovascular: Denies chest pain, Denies syncope and Denies dyspnea Respiratory: Respiratory: Denies cough, Denies dyspnea and Denies wheezing Gastrointestinal: Gastrointestinal: Denies abdominal pain, Denies change in bowel habits and Denies vomiting Genitourinary: Genitourinary: Denies urinary incontinence Musculoskeletal: Musculoskeletal: Denies arthralgias and Denies joint swelling Integumentary/Breasts: Skin/Breast: Denies new lesions and Denies rash Neurologic: Reports as per HPI, Denies dizziness, Denies syncope, Denies loss of vision and Reports numbness Psychiatric: Psychiatric: Denies anxiety and Denies depression Endocrine: Endocrine: Denies cold intolerance and Denies heat intolerance Hematologic/Lymphatic: Hematologic/Lymphatic: Denies easy bleeding and Denies easy bruising Allergic/Immunologic: Allergic/Immunologic: Denies no additional allergic/immunologic complaints and Denies wheezing PMFSH Past Medical History Medical History Pneumonia LLL in March 2019 Surgical History Surgical History Hx laparoscopic cholecystectomy June 2013 Previous section Family History Family History Mother No problems noted. Father Hyperlipidemia Social History Social History Social History:
[2022-10-16] MEDS: ASPIRIN 325 MG TABLET PO (09:48)
[2022-10-16] MEDS: ACETAMINOPHEN 325 MG TABLET 650 MG PO (09:48)
--- NOTE | 2022-10-16 12:37 | PM.IMHP ---
H&P: HPI History of Present Illness Date/Time: 10/16/22 12:37 Chief Complaint: Gissel Regan is a 37 year old female with no significant past medical history presenting for evaluation of left facial droop and left upper extremity numbness and tingling. Patient reports she started having these symptoms about 3 days ago, and was initially seen in the ED a day prior to admission. At that time, she was noted to have mild nasolabial flattening on the left side. Decision was made to admit patient for MRI brain but she declined due to having to care for her daughter. Patient presented again the following day due to worsening symptoms. She also reported feeling pressure in her head and ringing in her ears. No double vision or loss of vision. In the ED she was noted to have diminished sensation in the left face/arm and left facial droop. CT head and CTA brain/carotid has been obtained and is unrevealing. Patient gave 6 months ago, but otherwise is healthy. Review of Systems Review of Systems: 10 point review systems negative PMFSH Past Medical History Medical History Pneumonia LLL in March 2019 Surgical History Surgical History Hx laparoscopic cholecystectomy June 2013 Previous section Family History Family History Mother No problems noted. Father Hyperlipidemia Social History Social History Social History: She lives at home with her , 2 children and [id number]. Lifelong nonsmoker. No alcohol or drug use. She is a full code. She nominates her to be the individual who would make medical decisions for her if she is not able. Smoking status: Never smoker Alcohol intake: never Substance use: never Substance use type: does not use Lack of Transportation: No Lack of Food: Never True Current Housing: I Have Housing Concerned About Future Housing: No Difficulty Paying Gas/Electric Bills: No Difficulty Paying for Meds: No Currently Unemployed: No Education: Decline to Answer Difficulty w/ Childcare or Family Care: No Gender identity (if verbalized by the patient): Female Spiritual care concerns: No Meds Home Medications and Allergies Home Medications Medication Instructions Recorded Confirmed Type fluticasone propionate 110 1 puff inhalation Q12H #12 grams 11/10/19 10/16/22 Rx mcg/actuation HFA aerosol inhaler (Flovent HFA) aspirin 325 mg capsule 325 mg PO DAILY #30 caps 10/14/22 10/16/22 Rx acetaminophen 650 mg 650 mg PO Q8H PRN Pain 10/16/22 10/16/22 History tablet,extended release albuterol sulfate 90 mcg/actuation 2 puff inhalation QID PRN 10/16/22 10/16/22 History aerosol inhaler (Proventil HFA) Shortness Of Breath Allergies Allergy/AdvReac Type Severity Reaction Status Date / Time No Known Allergies Allergy Verified 10/14/22 16:29 Vital Signs Vital Signs - 24 hr 10/15/22 23:28 10/15/22 23:51 10/15/22 23:51 Temperature 97.7 F Pulse Rate 92 76 74 Respiratory Rate 16 18 Blood Pressure 129/83 114/82 Pulse Oximetry 100 100 Oxygen Delivery Room Air 10/15/22 23:51 10/15/22 23:52 10/16/22 00:01 Temperature Pulse Rate 71 77 74 Respiratory Rate 16 16 19 Blood Pressure 114/82 114/82 111/79 Pulse Oximetry 97 91 97 Oxygen Delivery 10/16/22 00:31 10/16/22 00:46 10/16/22 01:37 Temperature 97 F L Pulse Rate 73 67 68 Respiratory Rate 14 20 19 Blood Pressure 95/63 L 104/70 102/66 Pulse Oximetry 96 97 98 Oxygen Delivery 10/16/22 04:00 10/16/22 05:04 10/16/22 10:00 Temperature 97.6 F Pulse Rate 67 75 63 Respiratory Rate 18 Blood Pressure 98/58 L Pulse Oximetry 98 Oxygen Delivery 10/16/22 10:00 Temperature Pulse Rate Respiratory Rat
[2022-10-16] MEDS: FLUTICASONE PROP 110 MCG INHALER 12 GM (*SP) 1 PUFF INHALATION (19:47)
[2022-10-17] VITALS: PULSE 66
[2022-10-17 04:00] VITALS: PULSE 67
[2022-10-17 06:00] VITALS: BP 106/71; PULSE 67; RESP 14; TEMP 36.3; O2SAT 97
[2022-10-17] MEDS: FLUTICASONE PROP 110 MCG INHALER 12 GM (*SP) 1 PUFF INHALATION (07:05)
[2022-10-17 07:10] VITALS: PULSE 56; RESP 16; O2SAT 98
[2022-10-17] MEDS: ASPIRIN 325 MG TABLET PO (08:36)
--- NOTE | 2022-10-17 11:13 | PM.DS ---
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 Appreciate neurology input (2) Paresthesia: Code(s): R20.2 - Paresthesia of skin Status: Acute DS: Summary Hospital Course Hospital Course: 37-year-old admitted for left-sided facial weakness and lower extremity weakness. Workup negative. Questionable Zamorano's palsy per Neurology. Steroids on discharge. Otherwise she can follow-up with Neurology. Time Spent with Patient Time attestation: Total time spent providing and/or coordinating discharge services: Exam Narrative: EXAMINATION OF ORGAN SYSTEMS/BODY AREAS: Constitutional: Vital signs per nursing GENERAL: Appears anxious HEAD: Normal with no signs of head trauma. EYES: EOMI, conjunctiva normal ENT: Left-sided facial droop, forehead sparing LUNGS: Nonlabored breathing. HEART: [Regular rate and rhythm] ABD: [Soft], [nontender to palpation] EXT: Normal range of motion, normal strength all extremities SKIN: [No rashes or lesions.] NEURO: [Alert and oriented x 3. Subjective decreased sensation to the left face and arm and left facial droop.] PSYCH: Anxious affect Discharge Plan Discharge Attending physician on discharge: Mamadou Bruner Consulting providers: Cande Davenport Discharging Clinician: Mamadou Bruner Patient Disposition: Home, Self-Care Activity: as tolerated Diet: as tolerated Patient Instructions: Antibiotic Form Stand Alone Forms: General Discharge Information Follow-up/Referrals: Cande Davenport MD [Physician] - Discharge Medications: New prednisone 20 mg tablet 60 mg PO DAILY Qty: 18 0RF Continued fluticasone propionate [Flovent HFA] 110 mcg/actuation HFA aerosol inhaler 1 puff INHALATION Q12H Qty: 12 2RF Rx Instructions: Rinse and Spit after use. aspirin 325 mg capsule 325 mg PO DAILY Qty: 30 0RF Patient Comments: unable to obtain prescription. 0/30 doses taken acetaminophen [Tylenol Extended Release] 650 mg Tablet Extended Release 650 mg PO Q8H PRN (Reason: Pain) albuterol sulfate [Proventil HFA] 90 mcg/actuation HFA aerosol inhaler 2 puff inhalation QID PRN (Reason: Shortness Of Breath) Date of admission: 10/16/22 00:35 Primary Care Provider: PHYSICIAN NOT ON STAFF,NONSTAFF Admitting Provider: Meme Young V. Attending physician on admission: Meme Young V. Condition: Guarded Prognosis
== END 2022-10-17 11:45 | disposition home or self-care (01) ==
LOC: ANHED 23:45 → ANH3MED 10-16 01:27
PROVIDERS: Admitting Provider Chiropractor; Emergency Provider Emergency Medicine; Visit Provider Chiropractor
DX: R29.810 Facial weakness (principal); R20.0 Anesthesia of skin; R20.2 Paresthesia of skin; R51.9 Headache, unspecified; R06.02 Shortness of breath; H93.13 Tinnitus, bilateral; Z79.51 Long term (current) use of inhaled steroids; Z79.82 Long term (current) use of aspirin
CPT/HCPCS: 36415; 70450; 70544; 70553; 71045; 80053; 82948; 84484; 85025; 85610; 85730; 93005; 93306; 94640; 96375; 99285; A9270; A9577; G0378; G0379